=== PATIENT | female | born 1985 | race Caucasian/White ===

== ENCOUNTER 2018-06-28 19:59 | Emergency (ER) | payer OTHER ==
[~2018-06-28] VITALS: Ht 157.5 cm; Wt 68.0 kg
[2018-06-28 22:30] LABS: CLARITY URINE TURBID (CLEAR); COLOR URINE RED (YELLOW); KETONES URINE NEGATIVE (NEGATIVE); LEUKOCYTE ESTERASE URINE 2+ (NEGATIVE); NITRITE URINE NEGATIVE (NEGATIVE); OCCULT BLOOD URINE 3+ (NEGATIVE); PROTEIN URINE 2+ (NEGATIVE); SPECIFIC GRAVITY URINE 1.017 (1.005-1.030); UROBILINOGEN URINE 0.2 E.U./dL (0.2-1.0)
[2018-06-29] MEDS ORDERED: KETOROLAC 30MG/ML VIAL IM ONE (01:30)
[2018-06-29] MEDS ORDERED: ONDANSETRON 4MG ODT PO ONE (01:30)
[2018-06-29 01:58] LABS: BASOPHILS % 0.6 % (0.0-2.0); EOSINOPHILS % 1.3 % (0.0-5.0); HEMATOCRIT. 35.6 % (36.0-48.0); HEMOGLOBIN. 11.2 g/dL (12.0-16.0); LYMPHOCYTES % 30.1 % (20.0-50.0); MEAN CORPUSCULAR HEMOGLOBIN 24.2 pg (28.0-32.0); MEAN CORPUSCULAR VOLUME 76.8 fL (81.0-99.0); MEAN PLATELET VOLUME 8.1 fl (7.4-10.4); MONOCYTES % 7.9 % (2.0-8.0); NEUTROPHILS % 60.1 % (40.0-76.0); PLATELET 424 x1000/uL (130-400); RED BLOOD CELL COUNT 4.64 mill/uL (4.2-5.4); RED CELL DISTRIBUTION WIDTH 16.7 % (11.6-14.6)
[2018-06-29 02:04] LABS: CHLORIDE 106 mEq/L (98-107)
[2018-06-29] MEDS ORDERED: CEFTRIAXONE SODIUM 1 G/VIAL IM ONE (02:30)
[2018-06-29] MEDS ORDERED: LIDOCAINE HCL/PF 1% 10 MG/ML 5ML VIAL IJ ONE (02:45)
[2018-06-29 04:39] VITALS: BP 100/98
== END 2018-06-29 04:58 | disposition home or self-care (01) ==
LOC: ER 19:59
DX: N39.0 Urinary tract infection, site not specified (principal); N20.0 Calculus of kidney
CPT/HCPCS: 36415; 74176; 80053; 81003; 81025; 83690; 85025; 96372; 99284; J0696; J1885; J3490; Q0162; Z7610

== ENCOUNTER 2018-07-25 09:18 | Emergency (ER) | payer MEDICAID, OTHER ==
[~2018-07-25] VITALS: Ht 154.9 cm; Wt 62.0 kg
[2018-07-25] MEDS ORDERED: IBUPROFEN 600MG TABLET PO STA (16:42)
[2018-07-25] MEDS ORDERED: ONDANSETRON 4MG ODT PO STA (16:42)
[2018-07-25 17:06] LABS: BASOPHILS % 0.2 % (0.0-2.0); EOSINOPHILS % 0.2 % (0.0-5.0); HEMATOCRIT. 37.9 % (36.0-48.0); LYMPHOCYTES % 12.8 % (20.0-50.0); MEAN CORPUSCULAR HEMOGLOBIN 24.5 pg (28.0-32.0); MEAN CORPUSCULAR VOLUME 77.4 fL (81.0-99.0); MEAN PLATELET VOLUME 8.4 fl (7.4-10.4); MONOCYTES % 7.2 % (2.0-8.0); NEUTROPHILS % 79.6 % (40.0-76.0); PLATELET 398 x1000/uL (130-400); RED CELL DISTRIBUTION WIDTH 18.4 % (11.6-14.6)
[2018-07-25 17:08] LABS: CHLORIDE 102 mEq/L (98-107)
[2018-07-25 17:21] LABS: CLARITY URINE CLOUDY (CLEAR); COLOR URINE YELLOW (YELLOW); KETONES URINE 4+ (NEGATIVE); LEUKOCYTE ESTERASE URINE 2+ (NEGATIVE); NITRITE URINE NEGATIVE (NEGATIVE); OCCULT BLOOD URINE NEGATIVE (NEGATIVE); PH URINE 5.5 (4.5-8.0); PROTEIN URINE 1+ (NEGATIVE); SPECIFIC GRAVITY URINE 1.029 (1.005-1.030); UROBILINOGEN URINE 0.2 E.U./dL (0.2-1.0)
[2018-07-25] MEDS ORDERED: AMOXICILLIN 500 MG CAPSULE PO ONE (18:00)
[2018-07-25 18:58] VITALS: BP 112/79
== END 2018-07-25 18:58 | disposition home or self-care (01) ==
LOC: ER 09:18
DX: N30.00 Acute cystitis without hematuria (principal); N10 Acute pyelonephritis
CPT/HCPCS: 36415; 80053; 81003; 81025; 85025; 99284; Q0162

== ENCOUNTER 2018-10-22 13:43 | Emergency (ER) | payer MEDICAID ==
[~2018-10-22] VITALS: Ht 157.5 cm; Wt 62.0 kg
[2018-10-22] MEDS ORDERED: MORPHINE SULFATE 4 MG/ML CPJ (NOT FOR IM USE) IV STA (19:02)
[2018-10-22] MEDS ORDERED: KETOROLAC 30MG/ML VIAL IV STA (19:02)
[2018-10-22] MEDS ORDERED: ONDANSETRON HCL 4MG/2ML INJ IV STA (19:02)
[2018-10-22] MEDS ORDERED: SODIUM CHLORIDE 0.9% 1,000 ML IV ONE (19:02)
[2018-10-22] MEDS ORDERED: CEFTRIAXONE 1 G PREMIX 50 ML IV ONE (19:15)
[2018-10-22 19:21] LABS: CLARITY URINE CLOUDY (CLEAR); COLOR URINE YELLOW (YELLOW); KETONES URINE NEGATIVE (NEGATIVE); LEUKOCYTE ESTERASE URINE 1+ (NEGATIVE); NITRITE URINE NEGATIVE (NEGATIVE); OCCULT BLOOD URINE 3+ (NEGATIVE); PH URINE 5.5 (4.5-8.0); PROTEIN URINE NEGATIVE (NEGATIVE); SPECIFIC GRAVITY URINE 1.017 (1.005-1.030); UROBILINOGEN URINE 0.2 E.U./dL (0.2-1.0)
[2018-10-22 19:38] LABS: BASOPHILS % 0.6 % (0.0-2.0); EOSINOPHILS % 1.9 % (0.0-5.0); HEMATOCRIT. 35.7 % (36.0-48.0); HEMOGLOBIN. 11.5 g/dL (12.0-16.0); LYMPHOCYTES % 41.5 % (20.0-50.0); MEAN CORPUSCULAR HEMOGLOBIN 25.3 pg (28.0-32.0); MEAN CORPUSCULAR VOLUME 78.3 fL (81.0-99.0); MONOCYTES % 7.6 % (2.0-8.0); NEUTROPHILS % 48.4 % (40.0-76.0); PLATELET 461 x1000/uL (130-400); RED BLOOD CELL COUNT 4.56 mill/uL (4.2-5.4)
[2018-10-22 19:42] LABS: CHLORIDE 104 mEq/L (98-107)
[2018-10-22 19:44] LABS: PARTIAL THROMBOPLASTIN TIME 29.9 sec (23.4-31.0); PROTHROMBIN TIME 10.5 sec (9.6-11.0)
[2018-10-22 19:46] LABS: HCG SCREEN NEGATIVE
[2018-10-22 21:55] VITALS: BP 111/71
== END 2018-10-22 22:07 | disposition home or self-care (01) ==
LOC: ER 13:43
DX: N39.0 Urinary tract infection, site not specified (principal)
CPT/HCPCS: 36415; 74176; 80053; 81003; 81025; 83605; 83690; 83880; 84484; 84703; 85025; 85610; 85730; 87040; 87086; 96365; 96375; 99284; J0696; J1885; J2270; J2405; J7030

== ENCOUNTER 2020-07-02 20:44 | Emergency (ER) | payer MEDICAID, OTHER ==
[~2020-07-02] VITALS: Ht 157.5 cm; Wt 63.0 kg
[2020-07-02 21:38] LABS: CLARITY URINE CLEAR (CLEAR); COLOR URINE YELLOW (YELLOW); KETONES URINE NEGATIVE (NEGATIVE); LEUKOCYTE ESTERASE URINE NEGATIVE (NEGATIVE); NITRITE URINE NEGATIVE (NEGATIVE); OCCULT BLOOD URINE 3+ (NEGATIVE); PH URINE 6.5 (4.5-8.0); PROTEIN URINE NEGATIVE (NEGATIVE); SPECIFIC GRAVITY URINE 1.016 (1.005-1.030); UROBILINOGEN URINE 0.2 E.U./dL (0.2-1.0)
[2020-07-02 23:20] LABS: BASOPHILS % 0.4 % (0.0-2.0); EOSINOPHILS % 1.3 % (0.0-5.0); HEMATOCRIT. 38.2 % (36.0-48.0); HEMOGLOBIN. 12.8 g/dL (12.0-16.0); MEAN CORPUSCULAR HEMOGLOBIN 30.7 pg (28.0-32.0); MEAN CORPUSCULAR VOLUME 91.9 fL (81.0-99.0); MEAN PLATELET VOLUME 8.2 fl (7.4-10.4); MONOCYTES % 7.3 % (2.0-8.0); PLATELET 313 x1000/uL (130-400); RED BLOOD CELL COUNT 4.16 mill/uL (4.2-5.4); RED CELL DISTRIBUTION WIDTH 13.3 % (11.6-14.6)
[2020-07-02 23:26] LABS: CHLORIDE 108 mEq/L (98-107)
[2020-07-02 23:27] LABS: HCG SCREEN NEGATIVE
[2020-07-03 00:58] VITALS: BP 125/78
== END 2020-07-03 01:01 | disposition home or self-care (01) ==
LOC: ER 20:44
DX: R10.9 Unspecified abdominal pain (principal); R31.29 Other microscopic hematuria; Z87.442 Personal history of urinary calculi; Z87.898 Personal history of other specified conditions
CPT/HCPCS: 36415; 76770; 80048; 81003; 81025; 84703; 85025; 99284

== ENCOUNTER 2020-10-14 20:07 | Emergency (ER) | payer MEDICAID ==
[~2020-10-14] VITALS: Ht 157.5 cm; Wt 65.1 kg
[2020-10-14 20:22] VITALS: BP 128/79
[2020-10-14] MEDS ORDERED: ACETAMINOPHEN 325MG TABLET PO ONE (21:15)
[2020-10-14 21:46] LABS: UCG SCREEN NEGATIVE
== END 2020-10-14 22:27 | disposition home or self-care (01) ==
LOC: ER 20:26
DX: R51.9 Headache, unspecified (principal)
CPT/HCPCS: 81025; 99282

== ENCOUNTER 2021-01-22 14:34 | Emergency (ER) | payer MEDICAID ==
[~2021-01-22] VITALS: Ht 154.9 cm; Wt 66.0 kg
[2021-01-22 14:42] VITALS: BP 129/92
[2021-01-22] MEDS ORDERED: ALBU18HF2 IH (19:27)
== END 2021-01-22 20:06 | disposition home or self-care (01) ==
LOC: ER 14:34
DX: J06.9 Acute upper respiratory infection, unspecified (principal)
CPT/HCPCS: 99282; Z7610

== ENCOUNTER 2021-02-26 19:53 | Emergency (ER) | payer MEDICAID ==
[~2021-02-26] VITALS: Ht 157.5 cm; Wt 63.0 kg
[~2021-02-26 19:53] MED LIST: ALBU18HF2 IH
[2021-02-26] MEDS ORDERED: FAMOTIDINE 20MG/2ML VIAL IV STA (22:01)
[2021-02-26] MEDS ORDERED: MAGNESIUM/ALUMINUM HYDROXIDE/SIMETHICONE 30ML UDC PO STA (22:01)
[2021-02-26] MEDS ORDERED: VISCOUS LIDOCAINE 2% 15 ML UDC PO STA (22:01)
[2021-02-26] MEDS ORDERED: SODIUM CHLORIDE 0.9% 1,000 ML IV ONE (22:15)
[2021-02-26 22:21] LABS: CLARITY URINE CLEAR (CLEAR); COLOR URINE YELLOW (YELLOW); KETONES URINE NEGATIVE (NEGATIVE); LEUKOCYTE ESTERASE URINE NEGATIVE (NEGATIVE); NITRITE URINE NEGATIVE (NEGATIVE); OCCULT BLOOD URINE TRACE (NEGATIVE); PROTEIN URINE NEGATIVE (NEGATIVE); SPECIFIC GRAVITY URINE 1.015 (1.005-1.030); UROBILINOGEN URINE 0.2 E.U./dL (0.2-1.0)
[2021-02-26 22:32] LABS: *AMPHETAMINES SCREEN URINE NEGATIVE (NEGATIVE); *BARBITURATES SCREEN URINE NEGATIVE (NEGATIVE); *COCAINE SCREEN URINE NEGATIVE (NEGATIVE); METHADONE URINE SCREEN NEGATIVE (NEGATIVE); OPIATES URINE SCREEN NEGATIVE (NEGATIVE)
[2021-02-26 22:33] LABS: CANNABINOID URINE SCREEN NEGATIVE (NEGATIVE); PHENCYCLIDINE URINE SCREEN NEGATIVE (NEGATIVE)
[2021-02-26 22:42] LABS: *BENZODIAZEPINES SCREEN URINE PRESUMTIVE POSITIVE (NEGATIVE)
[2021-02-26 22:44] LABS: BASOPHILS % 0.4 % (0.0-2.0); EOSINOPHILS % 2.2 % (0.0-5.0); HEMATOCRIT. 37.9 % (36.0-48.0); HEMOGLOBIN. 13.1 g/dL (12.0-16.0); LYMPHOCYTES % 33.1 % (20.0-50.0); MEAN CORPUSCULAR HEMOGLOBIN 31.1 pg (28.0-32.0); MEAN CORPUSCULAR VOLUME 89.5 fL (81.0-99.0); MEAN PLATELET VOLUME 8.2 fl (7.4-10.4); MONOCYTES % 8.8 % (2.0-8.0); NEUTROPHILS % 55.5 % (40.0-76.0); PLATELET 386 x1000/uL (130-400); RED BLOOD CELL COUNT 4.23 mill/uL (4.2-5.4); RED CELL DISTRIBUTION WIDTH 13.6 % (11.6-14.6)
[2021-02-26 22:51] LABS: CHLORIDE 106 mEq/L (98-107)
[2021-02-26 22:54] LABS: PROTHROMBIN TIME 10.3 sec (9.6-11.0)
[2021-02-26 22:55] LABS: ETHANOL BLOOD < 10 mg/dL
[2021-02-26] MEDS ORDERED: KETOROLAC 15MG/ML VIAL IV ONE (23:30)
[2021-02-27] MEDS ORDERED: ONDA4TAB5 MT (00:21)
[2021-02-27] MEDS ORDERED: IBUP-2029 MT (00:21)
[2021-02-27 01:01] VITALS: BP 137/67
== END 2021-02-27 01:02 | disposition home or self-care (01) ==
LOC: ER 19:53
DX: R10.9 Unspecified abdominal pain (principal); I10 Essential (primary) hypertension
CPT/HCPCS: 36415; 71045; 74176; 80053; 80305; 80320; 81003; 81025; 83690; 85025; 85610; 96361; 96374; 96375; 99285; J1885; J3490; J7030; G0480

== ENCOUNTER 2021-06-02 10:14 | Emergency (ER) | payer MEDICAID ==
[~2021-06-02] VITALS: Ht 152.4 cm; Wt 64.2 kg
[~2021-06-02 10:14] MED LIST changes: +IBUP-2029 MT; +ONDA4TAB5 MT
[2021-06-02 11:39] VITALS: BP 115/80
[2021-06-02] MEDS ORDERED: ALBU6.7H15 INH (11:43)
== END 2021-06-02 11:56 | disposition home or self-care (01) ==
LOC: ER 10:14
DX: B34.9 Viral infection, unspecified (principal); J02.9 Acute pharyngitis, unspecified; I10 Essential (primary) hypertension; Z20.822 Contact with and (suspected) exposure to COVID-19
CPT/HCPCS: 87426; 99283

== ENCOUNTER 2022-01-09 15:06 | Emergency (ER) | payer MEDICAID ==
[~2022-01-09] VITALS: Ht 154.9 cm; Wt 60.0 kg
[~2022-01-09 15:06] MED LIST changes: +ALBU6.7H15 INH
[2022-01-09 15:14] VITALS: BP 102/79
[2022-01-09 19:56] LABS: BASOPHILS % 0.3 % (0.0-2.0); EOSINOPHILS % 0.2 % (0.0-5.0); HEMATOCRIT. 40.5 % (36.0-48.0); HEMOGLOBIN. 13.2 g/dL (12.0-16.0); LYMPHOCYTES % 24.3 % (20.0-50.0); MEAN CORPUSCULAR HEMOGLOBIN 29.6 pg (28.0-32.0); MEAN CORPUSCULAR VOLUME 90.8 fL (81.0-99.0); MEAN PLATELET VOLUME 8.9 fl (7.4-10.4); MONOCYTES % 8.4 % (2.0-8.0); NEUTROPHILS % 66.8 % (40.0-76.0); PLATELET 305 x1000/uL (130-400); RED BLOOD CELL COUNT 4.46 mill/uL (4.2-5.4); RED CELL DISTRIBUTION WIDTH 13.8 % (11.6-14.6)
[2022-01-09 20:05] LABS: CHLORIDE 105 mEq/L (98-107)
[2022-01-09 20:11] LABS: HCG SCREEN NEGATIVE
[2022-01-09 23:08] LABS: CLARITY URINE CLOUDY (CLEAR); COLOR URINE ORANGE (YELLOW); SPECIFIC GRAVITY URINE 1.025 (1.005-1.030)
[2022-01-09 23:09] LABS: PH URINE 5.5 (4.5-8.0)
[2022-01-09 23:10] LABS: KETONES URINE NEGATIVE (NEGATIVE); NITRITE URINE NEGATIVE (NEGATIVE); OCCULT BLOOD URINE 2+ (NEGATIVE); PROTEIN URINE 2+ (NEGATIVE)
[2022-01-09 23:11] LABS: LEUKOCYTE ESTERASE URINE 1+ (NEGATIVE); UROBILINOGEN URINE 0.2 E.U./dL (0.2-1.0)
== END 2022-01-10 01:27 | disposition home or self-care (01) ==
LOC: ER 15:24
DX: N93.9 Abnormal uterine and vaginal bleeding, unspecified (principal); I10 Essential (primary) hypertension; Z87.442 Personal history of urinary calculi
CPT/HCPCS: 36415; 76830; 76856; 80053; 81003; 81025; 84703; 85025; 99284

== ENCOUNTER 2022-02-02 17:57 | Emergency (ER) | payer MEDICAID ==
[~2022-02-02] VITALS: Ht 167.6 cm; Wt 89.0 kg
[2022-02-02 18:23] VITALS: BP 154/79
[2022-02-02] MEDS ORDERED: MAGNESIUM/ALUMINUM HYDROXIDE/SIMETHICONE 30ML UDC PO STA (21:52)
[2022-02-02] MEDS ORDERED: ACETAMINOPHEN 325MG TABLET PO STA (21:52)
[2022-02-02] MEDS ORDERED: FAMOTIDINE 20MG TABLET PO ONE (22:00)
[2022-02-02 22:08] LABS: CLARITY URINE CLEAR (CLEAR); COLOR URINE YELLOW (YELLOW); KETONES URINE NEGATIVE (NEGATIVE); LEUKOCYTE ESTERASE URINE TRACE (NEGATIVE); NITRITE URINE NEGATIVE (NEGATIVE); OCCULT BLOOD URINE NEGATIVE (NEGATIVE); PH URINE 5.5 (4.5-8.0); PROTEIN URINE NEGATIVE (NEGATIVE); UROBILINOGEN URINE 0.2 E.U./dL (0.2-1.0)
[2022-02-02 22:36] LABS: CHLORIDE 107 mEq/L (98-107)
[2022-02-02 22:42] LABS: PROTHROMBIN TIME 10.9 sec (9.6-11.0)
[2022-02-02 22:43] LABS: BASOPHILS % 0.4 % (0.0-2.0); EOSINOPHILS % 1.4 % (0.0-5.0); HEMATOCRIT. 41.7 % (36.0-48.0); HEMOGLOBIN. 13.8 g/dL (12.0-16.0); LYMPHOCYTES % 36.3 % (20.0-50.0); MEAN CORPUSCULAR HEMOGLOBIN 29.6 pg (28.0-32.0); MEAN CORPUSCULAR VOLUME 89.4 fL (81.0-99.0); MEAN PLATELET VOLUME 8.6 fl (7.4-10.4); MONOCYTES % 9.3 % (2.0-8.0); NEUTROPHILS % 52.6 % (40.0-76.0); PLATELET 317 x1000/uL (130-400); RED BLOOD CELL COUNT 4.66 mill/uL (4.2-5.4); RED CELL DISTRIBUTION WIDTH 14.5 % (11.6-14.6)
[2022-02-02 22:46] LABS: HCG SCREEN NEGATIVE
[2022-02-02] MEDS ORDERED: FAMO-135 MT (23:00)
[2022-02-02] MEDS ORDERED: LOSA50TA41 MT (23:00)
== END 2022-02-02 23:50 | disposition home or self-care (01) ==
LOC: ER 17:57
DX: R10.9 Unspecified abdominal pain (principal); I10 Essential (primary) hypertension; Z87.440 Personal history of urinary (tract) infections
CPT/HCPCS: 36415; 76705; 80053; 81003; 81025; 84703; 85025; 99284

== ENCOUNTER 2022-05-22 11:45 | Emergency (ER) | payer MEDICAID ==
[~2022-05-22] VITALS: Ht 160 cm; Wt 64.0 kg
[~2022-05-22 11:45] MED LIST changes: +FAMO-135 MT; +LOSA50TA41 MT
[2022-05-22 12:34] LABS: CLARITY URINE CLEAR (CLEAR); COLOR URINE YELLOW (YELLOW); KETONES URINE NEGATIVE (NEGATIVE); LEUKOCYTE ESTERASE URINE NEGATIVE (NEGATIVE); NITRITE URINE NEGATIVE (NEGATIVE); OCCULT BLOOD URINE 3+ (NEGATIVE); PH URINE 5.5 (4.5-8.0); PROTEIN URINE TRACE (NEGATIVE); SPECIFIC GRAVITY URINE 1.022 (1.005-1.030); UROBILINOGEN URINE 0.2 E.U./dL (0.2-1.0)
[2022-05-22] MEDS ORDERED: NITR100C PO (13:43)
[2022-05-22] MEDS ORDERED: IBUP-2029 PO (13:43)
[2022-05-22 14:29] VITALS: BP 125/78
== END 2022-05-22 14:31 | disposition home or self-care (01) ==
LOC: ER 11:56
DX: R30.0 Dysuria (principal); M54.50 Low back pain, unspecified; I10 Essential (primary) hypertension; Z87.440 Personal history of urinary (tract) infections; Z79.899 Other long term (current) drug therapy
CPT/HCPCS: 81003; 81025; 99283

== ENCOUNTER 2022-05-28 14:36 | Emergency (ER) | payer MEDICAID ==
[~2022-05-28] VITALS: Ht 157.5 cm; Wt 63.0 kg
[~2022-05-28 14:36] MED LIST changes: +IBUP-2029 PO; +NITR100C PO
[2022-05-28 18:48] LABS: CLARITY URINE CLEAR (CLEAR); COLOR URINE YELLOW (YELLOW); KETONES URINE NEGATIVE (NEGATIVE); LEUKOCYTE ESTERASE URINE NEGATIVE (NEGATIVE); NITRITE URINE NEGATIVE (NEGATIVE); OCCULT BLOOD URINE 3+ (NEGATIVE); PH URINE 5.5 (4.5-8.0); PROTEIN URINE NEGATIVE (NEGATIVE); SPECIFIC GRAVITY URINE 1.006 (1.005-1.030); UROBILINOGEN URINE 0.2 E.U./dL (0.2-1.0)
[2022-05-28] MEDS ORDERED: KETOROLAC 60MG/2ML VIAL IM ONE (20:00)
[2022-05-28 20:21] LABS: BASOPHILS % 0.3 % (0.0-2.0); EOSINOPHILS % 1.9 % (0.0-5.0); HEMATOCRIT. 39.3 % (36.0-48.0); HEMOGLOBIN. 13.1 g/dL (12.0-16.0); LYMPHOCYTES % 33.1 % (20.0-50.0); MEAN CORPUSCULAR HEMOGLOBIN 29.1 pg (28.0-32.0); MEAN CORPUSCULAR VOLUME 87.5 fL (81.0-99.0); MEAN PLATELET VOLUME 8.1 fl (7.4-10.4); MONOCYTES % 8.5 % (2.0-8.0); NEUTROPHILS % 56.2 % (40.0-76.0); PLATELET 326 x1000/uL (130-400); RED CELL DISTRIBUTION WIDTH 14.8 % (11.6-14.6)
[2022-05-28 20:26] LABS: CHLORIDE 105 mEq/L (98-107)
[2022-05-28 20:53] VITALS: BP 132/74
[2022-05-28] MEDS ORDERED: IBUP-2029 PO (21:06)
== END 2022-05-28 21:18 | disposition home or self-care (01) ==
LOC: ER 15:29
DX: R10.9 Unspecified abdominal pain (principal); I10 Essential (primary) hypertension; Z87.440 Personal history of urinary (tract) infections
CPT/HCPCS: 36415; 74176; 80048; 81003; 81025; 85025; 96372; 99284; J1885

== ENCOUNTER 2022-06-20 12:36 | Emergency (ER) | payer MEDICAID ==
[~2022-06-20] VITALS: Ht 157.5 cm; Wt 59.0 kg
[2022-06-20] MEDS ORDERED: ONDANSETRON 4MG ODT PO ONE (14:30)
[2022-06-20] MEDS ORDERED: MAGNESIUM/ALUMINUM HYDROXIDE/SIMETHICONE 30ML UDC PO ONE (14:30)
[2022-06-20] MEDS ORDERED: FAMOTIDINE 20MG TABLET PO ONE (14:30)
[2022-06-20 15:52] LABS: BASOPHILS % 0.4 % (0.0-2.0); EOSINOPHILS % 1.8 % (0.0-5.0); HEMATOCRIT. 36.3 % (36.0-48.0); HEMOGLOBIN. 11.9 g/dL (12.0-16.0); LYMPHOCYTES % 35.9 % (20.0-50.0); MEAN CORPUSCULAR HEMOGLOBIN 28.5 pg (28.0-32.0); MEAN PLATELET VOLUME 8.2 fl (7.4-10.4); MONOCYTES % 10.7 % (2.0-8.0); NEUTROPHILS % 51.2 % (40.0-76.0); PLATELET 336 x1000/uL (130-400); RED BLOOD CELL COUNT 4.17 mill/uL (4.2-5.4); RED CELL DISTRIBUTION WIDTH 14.6 % (11.6-14.6)
[2022-06-20 15:55] LABS: CHLORIDE 110 mEq/L (98-107)
[2022-06-20] MEDS ORDERED: FAMOTIDINE 20MG TABLET PO NR (17:30)
[2022-06-20] MEDS ORDERED: ONDANSETRON 4MG ODT PO NR (17:30)
[2022-06-20] MEDS ORDERED: MAGNESIUM/ALUMINUM HYDROXIDE/SIMETHICONE 30ML UDC PO NR (17:30)
[2022-06-20 17:32] VITALS: BP 114/74
[2022-06-20] MEDS ORDERED: ONDA4TAB11 PO (18:32)
[2022-06-20] MEDS ORDERED: FAMO-135 MT (18:32)
== END 2022-06-20 19:11 | disposition home or self-care (01) ==
LOC: ER 12:36
DX: K52.9 Noninfective gastroenteritis and colitis, unspecified (principal); I10 Essential (primary) hypertension
CPT/HCPCS: 36415; 80053; 83690; 85025; 99284; Q0162

== ENCOUNTER 2022-07-18 12:57 | Emergency (ER) | payer MEDICAID ==
[~2022-07-18] VITALS: Ht 160 cm; Wt 70.0 kg
[~2022-07-18 12:57] MED LIST changes: +ONDA4TAB11 PO
[2022-07-18 13:08] VITALS: BP 103/59
[2022-07-18] MEDS ORDERED: ONDA4TAB50 MT (16:55)
[2022-07-18] MEDS ORDERED: FLUT9.9S BOTHNSTRLS (16:55)
[2022-07-18] MEDS ORDERED: LOPE2CAP MT (16:55)
[2022-07-18] MEDS ORDERED: CETI5TAB5 MT (16:55)
[2022-07-18] MEDS ORDERED: TOPUD MT (16:58)
[2022-07-18] MEDS ORDERED: BENZ1LOZ MM (17:03)
== END 2022-07-18 17:00 | disposition home or self-care (01) ==
LOC: ER 12:57
DX: R05.9 Cough, unspecified (principal); R11.2 Nausea with vomiting, unspecified; R19.7 Diarrhea, unspecified; R07.0 Pain in throat; I10 Essential (primary) hypertension; Z87.440 Personal history of urinary (tract) infections
CPT/HCPCS: 71045; 99283; Z7610

== ENCOUNTER 2022-10-12 20:01 | Emergency (ER) | payer MEDICAID ==
[~2022-10-12] VITALS: Ht 157.5 cm; Wt 60.1 kg
[~2022-10-12 20:01] MED LIST changes: +BENZ1LOZ MM; +CETI5TAB5 MT; +FLUT9.9S BOTHNSTRLS; +LOPE2CAP MT; +ONDA4TAB50 MT; +TOPUD MT
[2022-10-12 21:00] VITALS: BP 118/78
[2022-10-12 21:07] LABS: BASOPHILS % 0.4 % (0.0-2.0); EOSINOPHILS % 2.2 % (0.0-5.0); HEMATOCRIT. 37.3 % (36.0-48.0); HEMOGLOBIN. 12.4 g/dL (12.0-16.0); LYMPHOCYTES % 35.4 % (20.0-50.0); MEAN CORPUSCULAR HEMOGLOBIN 28.9 pg (28.0-32.0); MEAN PLATELET VOLUME 8.2 fl (7.4-10.4); MONOCYTES % 10.9 % (2.0-8.0); NEUTROPHILS % 51.1 % (40.0-76.0); PLATELET 325 x1000/uL (130-400); RED BLOOD CELL COUNT 4.29 mill/uL (4.2-5.4); RED CELL DISTRIBUTION WIDTH 15.4 % (11.6-14.6)
[2022-10-12 21:15] LABS: CHLORIDE 107 mEq/L (98-107)
[2022-10-12 21:42] LABS: HCG SCREEN NEGATIVE
[2022-10-12 22:01] LABS: CLARITY URINE CLOUDY (CLEAR); COLOR URINE YELLOW (YELLOW); KETONES URINE NEGATIVE (NEGATIVE); LEUKOCYTE ESTERASE URINE TRACE (NEGATIVE); NITRITE URINE NEGATIVE (NEGATIVE); OCCULT BLOOD URINE NEGATIVE (NEGATIVE); PH URINE 5.5 (4.5-8.0); PROTEIN URINE NEGATIVE (NEGATIVE); SPECIFIC GRAVITY URINE 1.011 (1.005-1.030); UROBILINOGEN URINE 0.2 E.U./dL (0.2-1.0)
[2022-10-12] MEDS ORDERED: ONDANSETRON 4MG/5ML UDC PO ONE (22:30)
[2022-10-12] MEDS ORDERED: IBUPROFEN 400MG TABLET PO ONE (22:30)
[2022-10-13] MEDS ORDERED: IBUP-2028 MT (00:03)
[2022-10-13] MEDS ORDERED: CEPH500C2 MT (00:03)
== END 2022-10-13 00:45 | disposition home or self-care (01) ==
LOC: ER 20:01
DX: N39.0 Urinary tract infection, site not specified (principal); I10 Essential (primary) hypertension; Z79.899 Other long term (current) drug therapy
CPT/HCPCS: 36415; 74176; 80053; 81003; 81025; 84703; 85025; 93005; 99285

== ENCOUNTER 2023-01-19 18:59 | Emergency (ER) | payer MEDICAID, OTHER ==
[~2023-01-19] VITALS: Ht 157.5 cm; Wt 61.0 kg
[~2023-01-19 18:59] MED LIST changes: +CEPH500C2 MT; +IBUP-2028 MT
[2023-01-19 19:03] VITALS: O2SAT 97
[2023-01-19] MEDS ORDERED: KETOROLAC 30MG/ML VIAL IM ONE (19:45)
[2023-01-19] MEDS ORDERED: ONDANSETRON HCL 4MG/2ML INJ IM ONE (20:00)
[2023-01-19 20:28] LABS: CHLORIDE 108 mEq/L (98-107); INDEX HEMOLYSI 1 (1-3); INDEX ICTERIC 1 (1-4); INDEX LIPEMIC 1 (1-3); POTASSIUM 3.5 mEq/L (3.5-5.1); SODIUM 139 mEq/L (136-145)
[2023-01-19 20:36] LABS: ALANINE AMINOTRANSFERASE 51 IU/L (13-61); ALBUMIN 4.3 g/dL (3.4-5.0); ASPARTATE AMINOTRANSFERASE 30 IU/L (15-37); BILIRUBIN TOTAL 0.3 mg/dL (0.1-1.0); CALCIUM 9.6 mg/dL (8.5-10.1); CARBON DIOXIDE 24 mEq/L (21-32); CREATININE 0.4 mg/dL (0.6-1.3); GLUCOSE 112 mg/dL (70-105); HCG SCREEN NEGATIVE; PROTEIN TOTAL 8.5 g/dL (6.0-8.3); UREA NITROGEN BLOOD 14 mg/dL (7-21)
[2023-01-19 20:37] LABS: BASOPHILS % 0.2 % (0.0-2.0); EOSINOPHILS % 0.2 % (0.0-5.0); HEMATOCRIT. 41.1 % (36.0-48.0); HEMOGLOBIN. 13.5 g/dL (12.0-16.0); LYMPHOCYTES % 9.3 % (20.0-50.0); MEAN CORPUSCULAR HEMOGLOBIN 29.4 pg (28.0-32.0); MEAN CORPUSCULAR VOLUME 89.2 fL (81.0-99.0); MEAN PLATELET VOLUME 8.8 fl (7.4-10.4); MONOCYTES % 4.5 % (2.0-8.0); NEUTROPHILS % 85.8 % (40.0-76.0); PLATELET 337 x1000/uL (130-400); RED CELL DISTRIBUTION WIDTH 14.3 % (11.6-14.6); WHITE BLOOD COUNT 14.6 x1000/uL (4.5-11.0)
[2023-01-19] MEDS ORDERED: KETOROLAC 30MG/ML VIAL IM NR (21:22)
[2023-01-19 22:02] VITALS: BP 123/79
[2023-01-19 22:04] LABS: CLARITY URINE CLOUDY (CLEAR); COLOR URINE YELLOW (YELLOW); GLUCOSE URINE NEGATIVE (NEGATIVE); KETONES URINE TRACE (NEGATIVE); LEUKOCYTE ESTERASE URINE 1+ (NEGATIVE); NITRITE URINE NEGATIVE (NEGATIVE); OCCULT BLOOD URINE NEGATIVE (NEGATIVE); PROTEIN URINE TRACE (NEGATIVE); UROBILINOGEN URINE 0.2 E.U./dL (0.2-1.0)
[2023-01-19 22:06] LABS: SQUAMOUS EPITHELIAL CELL URINE 2+ /lpf (RARE/1+); YEAST URINE NONE SEEN
[2023-01-19 22:25] LABS: BACTERIA URINE TRACE; RBC URINE NONE SEEN /hpf (0-2)
[2023-01-19] MEDS ORDERED: FAMO-135 MT (22:32)
[2023-01-19] MEDS ORDERED: NITR-87 MT (22:33)
[2023-01-19 22:41] VITALS: PULSE 110; RESP 19; TEMP 98.9
== END 2023-01-19 22:51 | disposition home or self-care (01) ==
LOC: ER 18:59
DX: N39.0 Urinary tract infection, site not specified (principal); R11.2 Nausea with vomiting, unspecified; I10 Essential (primary) hypertension; Z79.899 Other long term (current) drug therapy
CPT/HCPCS: 80053; 81003; 81025; 84703; 85025; 36415; 76830; 76856; 96372; 99285; J1885; J2405; Z7610

== ENCOUNTER 2023-03-13 07:54 | Emergency (ER) | payer MEDICAID, OTHER ==
[~2023-03-13] VITALS: Ht 157.5 cm; Wt 61.0 kg
[~2023-03-13 07:54] MED LIST changes: +NITR-87 MT
[2023-03-13 08:02] VITALS: O2SAT 98
[2023-03-13 08:39] LABS: CHLORIDE 109 mEq/L (98-107); INDEX HEMOLYSI 1 (1-3); INDEX ICTERIC 1 (1-4); INDEX LIPEMIC 1 (1-3); POTASSIUM 3.9 mEq/L (3.5-5.1); SODIUM 140 mEq/L (136-145)
[2023-03-13 08:51] LABS: ALANINE AMINOTRANSFERASE 35 IU/L (13-61); ALBUMIN 3.7 g/dL (3.4-5.0); ASPARTATE AMINOTRANSFERASE 22 IU/L (15-37); BILIRUBIN TOTAL 0.4 mg/dL (0.1-1.0); CALCIUM 8.7 mg/dL (8.5-10.1); CARBON DIOXIDE 28 mEq/L (21-32); CREATININE 0.5 mg/dL (0.6-1.3); GLUCOSE 99 mg/dL (70-105); PROTEIN TOTAL 7.6 g/dL (6.0-8.3); UREA NITROGEN BLOOD 12 mg/dL (7-21)
[2023-03-13 08:53] LABS: BASOPHILS % 0.4 % (0.0-2.0); EOSINOPHILS % 1.6 % (0.0-5.0); HEMOGLOBIN. 12.5 g/dL (12.0-16.0); LYMPHOCYTES % 29.1 % (20.0-50.0); MEAN CORPUSCULAR HEMOGLOBIN 30.1 pg (28.0-32.0); MEAN CORPUSCULAR HGB CONC 33.7 g/dL (31.0-37.0); MEAN CORPUSCULAR VOLUME 89.3 fL (81.0-99.0); MEAN PLATELET VOLUME 8.5 fl (7.4-10.4); MONOCYTES % 8.6 % (2.0-8.0); NEUTROPHILS % 60.3 % (40.0-76.0); PLATELET 291 x1000/uL (130-400); RED BLOOD CELL COUNT 4.14 mill/uL (4.2-5.4); RED CELL DISTRIBUTION WIDTH 14.2 % (11.6-14.6); WHITE BLOOD COUNT 6.8 x1000/uL (4.5-11.0)
[2023-03-13 09:50] LABS: CLARITY URINE CLOUDY (CLEAR); COLOR URINE YELLOW (YELLOW); GLUCOSE URINE NEGATIVE (NEGATIVE); KETONES URINE NEGATIVE (NEGATIVE); LEUKOCYTE ESTERASE URINE 1+ (NEGATIVE); NITRITE URINE NEGATIVE (NEGATIVE); OCCULT BLOOD URINE TRACE (NEGATIVE); PROTEIN URINE NEGATIVE (NEGATIVE); SPECIFIC GRAVITY URINE 1.016 (1.005-1.030); UROBILINOGEN URINE 0.2 E.U./dL (0.2-1.0)
[2023-03-13 09:53] LABS: YEAST URINE NONE SEEN
[2023-03-13 10:33] LABS: SQUAMOUS EPITHELIAL CELL URINE 1+ /lpf (RARE/1+)
[2023-03-13 10:34] LABS: RBC URINE 0-2 /hpf (0-2); WBC URINE 0-2 /hpf (0-2)
[2023-03-13 10:35] LABS: BACTERIA URINE 2+
[2023-03-13] MEDS ORDERED: CEFP200T13 MT (11:21)
[2023-03-13] MEDS ORDERED: LIDOCAINE HCL 1% 20ML VIAL (Pyxis) INJ INFIL ONE (11:30)
[2023-03-13] MEDS ORDERED: CEFTRIAXONE SODIUM 1 G/VIAL IM ONE (11:30)
[2023-03-13 12:02] VITALS: BP 124/82; PULSE 69; RESP 20; TEMP 98.1
== END 2023-03-13 12:04 | disposition home or self-care (01) ==
LOC: ER 07:54
DX: N39.0 Urinary tract infection, site not specified (principal); I10 Essential (primary) hypertension; Z87.440 Personal history of urinary (tract) infections; Z79.899 Other long term (current) drug therapy
CPT/HCPCS: 36415; 80053; 81003; 81025; 85025; 99283

== ENCOUNTER 2023-07-18 17:13 | Emergency (ER) | payer MEDICAID, OTHER ==
[~2023-07-18] VITALS: Ht 157.5 cm; Wt 59.8 kg
[~2023-07-18 17:13] MED LIST changes: -BENZ1LOZ MM; +BENZ1LOZ42 MM; +CEFP200T13 MT
[2023-07-18 17:16] VITALS: BP 123/82; PULSE 92; RESP 16; TEMP 98.5; O2SAT 99
[2023-07-18 18:06] LABS: BASOPHILS % 0.5 % (0.0-2.0); EOSINOPHILS % 1.4 % (0.0-5.0); HEMATOCRIT. 40.3 % (36.0-48.0); HEMOGLOBIN. 13.7 g/dL (12.0-16.0); LYMPHOCYTES % 28.9 % (20.0-50.0); MEAN CORPUSCULAR HEMOGLOBIN 30.9 pg (28.0-32.0); MEAN CORPUSCULAR VOLUME 90.7 fL (81.0-99.0); MEAN PLATELET VOLUME 8.3 fl (7.4-10.4); MONOCYTES % 8.9 % (2.0-8.0); NEUTROPHILS % 60.3 % (40.0-76.0); PLATELET 300 x1000/uL (130-400); RED BLOOD CELL COUNT 4.44 mill/uL (4.2-5.4); RED CELL DISTRIBUTION WIDTH 13.3 % (11.6-14.6); WHITE BLOOD COUNT 8.9 x1000/uL (4.5-11.0)
[2023-07-18 18:20] LABS: ALANINE AMINOTRANSFERASE 32 IU/L (10-49); ALBUMIN 4.8 g/dL (3.2-4.8); ASPARTATE AMINOTRANSFERASE 28 IU/L (<34); BILIRUBIN TOTAL 0.2 mg/dL (0.1-1.0); CALCIUM 9.3 mg/dL (8.7-10.4); CARBON DIOXIDE 28 mEq/L (21-32); CHLORIDE 105 mEq/L (98-107); CREATININE 0.6 mg/dL (0.6-1.0); GLUCOSE 89 mg/dL (70-105); PROTEIN TOTAL 8.2 g/dL (6.0-8.3); SODIUM 139 mEq/L (136-145); UREA NITROGEN BLOOD 11 mg/dL (9-23)
[2023-07-18 20:33] LABS: CLARITY URINE CLEAR (CLEAR); COLOR URINE YELLOW (YELLOW); GLUCOSE URINE NEGATIVE (NEGATIVE); KETONES URINE NEGATIVE (NEGATIVE); LEUKOCYTE ESTERASE URINE NEGATIVE (NEGATIVE); NITRITE URINE NEGATIVE (NEGATIVE); OCCULT BLOOD URINE NEGATIVE (NEGATIVE); PROTEIN URINE NEGATIVE (NEGATIVE); SPECIFIC GRAVITY URINE 1.021 (1.005-1.030); UROBILINOGEN URINE 0.2 E.U./dL (0.2-1.0)
[2023-07-18] MEDS: KETOROLAC 60MG/2ML VIAL IM ONE (21:01)
[2023-07-18] MEDS: ONDANSETRON 4MG ODT PO ONE (21:01)
== END 2023-07-19 00:54 | disposition home or self-care (01) ==
LOC: ER 17:13
DX: R10.9 Unspecified abdominal pain (principal); R30.0 Dysuria; I10 Essential (primary) hypertension
CPT/HCPCS: 99285; 74176; 80053; 81003; 81025; 83690; 85025; 36415; 93005; 96372; Q0162; J1885

== ENCOUNTER 2023-09-26 12:01 | Emergency (ER) | payer MEDICAID, OTHER ==
[~2023-09-26] VITALS: Ht 152.4 cm; Wt 66.0 kg
[2023-09-26 12:02] VITALS: O2SAT 99
[2023-09-26] MEDS: IBUPROFEN 400MG TABLET PO ONE (13:33)
[2023-09-26] MEDS: ACETAMINOPHEN 325MG TABLET PO ONE (13:34)
[2023-09-26] MEDS: LIDOCAINE 5% PATCH TOP SCH (13:34)
[2023-09-26] MEDS: METHOCARBAMOL 500MG TABLET PO ONE (16:18)
[2023-09-26] MEDS ORDERED: IBUP-2029 MT (21:18)
[2023-09-26] MEDS ORDERED: CYCL5TAB MT (21:18)
[2023-09-26 21:30] VITALS: BP 121/79; PULSE 84; RESP 16; TEMP 98.8
== END 2023-09-26 21:33 | disposition home or self-care (01) ==
LOC: ER 13:15
DX: S16.1XXA Strain of muscle, fascia and tendon at neck level, initial encounter (principal); I10 Essential (primary) hypertension; V98.8XXA Other specified transport accidents, initial encounter; Y93.89 Activity, other specified; Y92.89 Other specified places as the place of occurrence of the external cause; Y99.8 Other external cause status
CPT/HCPCS: 72131; 72141; 81025; 99284

== ENCOUNTER 2025-01-14 14:02 | Emergency (ER) | payer OTHER ==
[~2025-01-14] VITALS: Ht 160 cm; Wt 75.0 kg
[~2025-01-14 14:02] MED LIST changes: +CYCL5TAB3 MT; +ONDA-239 PO; -ONDA4TAB11 PO
[2025-01-14 14:15] VITALS: O2SAT 99
[2025-01-14] MEDS: METHOCARBAMOL 500MG TABLET PO ONE (15:34)
[2025-01-14] MEDS: KETOROLAC 30MG/ML VIAL IM ONE (15:34)
[2025-01-14 15:36] LABS: CLARITY URINE CLEAR (CLEAR); COLOR URINE YELLOW (YELLOW); GLUCOSE URINE NEGATIVE (NEGATIVE); KETONES URINE TRACE (NEGATIVE); LEUKOCYTE ESTERASE URINE NEGATIVE (NEGATIVE); NITRITE URINE NEGATIVE (NEGATIVE); OCCULT BLOOD URINE NEGATIVE (NEGATIVE); PH URINE 5.5 (4.5-8.0); PROTEIN URINE NEGATIVE (NEGATIVE); SPECIFIC GRAVITY URINE 1.021 (1.005-1.030); UROBILINOGEN URINE 0.2 E.U./dL (0.2-1.0)
[2025-01-14 15:55] LABS: BASOPHILS % 0.4 % (0.0-2.0); EOSINOPHILS % 1.3 % (0.0-5.0); HEMATOCRIT. 41.5 % (36.0-48.0); HEMOGLOBIN. 14.2 g/dL (12.0-16.0); LYMPHOCYTES % 26.2 % (20.0-50.0); MEAN PLATELET VOLUME 8.0 fl (7.4-10.4); MONOCYTES % 8.3 % (2.0-8.0); NEUTROPHILS % 63.8 % (40.0-76.0); PLATELET 333 x1000/uL (130-400); RED BLOOD CELL COUNT 4.60 mill/uL (4.2-5.4); RED CELL DISTRIBUTION WIDTH 13.4 % (11.6-14.6)
[2025-01-14 16:10] LABS: CREATININE 0.6 mg/dL (0.6-1.0); UREA NITROGEN BLOOD 8 mg/dL (9-23)
[2025-01-14] MEDS ORDERED: METH-653 MT (16:36)
[2025-01-14] MEDS ORDERED: IBUP-2029 PO (16:36)
[2025-01-14 17:07] VITALS: BP 138/87; PULSE 78; RESP 16; TEMP 36.7; O2SAT 99
== END 2025-01-14 17:13 | disposition home or self-care (01) ==
LOC: ER 14:02
DX: S33.5XXA Sprain of ligaments of lumbar spine, initial encounter (principal); K76.0 Fatty (change of) liver, not elsewhere classified; I10 Essential (primary) hypertension; M54.16 Radiculopathy, lumbar region; Z79.1 Long term (current) use of non-steroidal anti-inflammatories (NSAID); Z79.899 Other long term (current) drug therapy; Z87.440 Personal history of urinary (tract) infections; X58.XXXA Exposure to other specified factors, initial encounter; Y93.89 Activity, other specified; Y92.89 Other specified places as the place of occurrence of the external cause; Y99.8 Other external cause status
CPT/HCPCS: 99285; 76700; 80048; 81003; 81025; 85025; 36415; 96372; J1885